=== PATIENT | female | born 1995 | race African-American/Black ===

== ENCOUNTER 2016-09-27 14:27 | Emergency (ER) | payer OTHER ==
--- NOTE | ~2016-09-27 | EKG ---
PATIENT: BENNIE SHAW UNIT #: [id number] Ventricular Rate: 84 BPM Atrial Rate: 84 BPM P-R Interval: 116 ms QRS Duration: 74 ms Q-T Interval: 350 ms QTC Calculation(Bezet): 413 ms P [place]: 65 degrees Calculated R [place]: 20 degrees Calculated T [place]: 27 degrees Diagnosis Line: Normal sinus rhythm Diagnosis Line: Normal ECG Diagnosis Line: No previous ECGs available Diagnosis Line: Confirmed by PRETTY ALVARADO MD ([id number]) on Diagnosis Line: 10/01/2016 1:25:31 PM INTERPRETING MD: JENNY BHAGAT
[~2016-09-27 14:27] MED LIST: BACITRACIN30 GM TOP; CYCLAFEM; IBUPROFEN PO; MUCINEX D1 TAB.SR1; NUPRIN200 M1 PO; ZITHROMAX
[2016-09-27 18:18] LABS: BASOPHIL% 0.5 % (0-2.5); EOSINOPHIL# 0.2 X10e3 (0-0.7); EOSINOPHIL% 4.6 % (0.0-7.0); HEMATOCRIT 40.9 % (35.0-45.0); HEMOGLOBIN 13.9 gm/dL (12.0-16.0); LYMPHOCYTE# 1.1 X10e3 (1.0-3.5); LYMPHOCYTE% 21.5 % (17.0-45.0); MEAN CELL VOLUME 84.7 FL (83-96); MEAN CORPUSCULAR HEMOGLOBIN 28.8 PG (28-34); MEAN PLATELET VOLUME 9.4 FL (6.5-11.5); MONOCYTE# 0.4 X10e3 (0-1.0); MONOCYTE% 7.5 % (3.0-12.0); NEUTROPHIL# 3.4 X10e3 (1.5-7.1); NEUTROPHIL% 65.9 % (40-75); PLATELET COUNT 179 X10e3 (140-420); RED BLOOD COUNT 4.83 X10e (3.90-5.30); RED CELL DISTRIBUTION WIDTH 13.5 % (11.0-15.5); WHITE BLOOD COUNT 5.1 X10e3 (4.0-10.5)
[2016-09-27 18:20] LABS: DIFF IND NO
[2016-09-28 07:28] LABS: ALKALINE PHOSPHATASE 32 U/L (32-92); ALT (SGPT) 10 U/L (10-40); AST (SGOT) 16 U/L (10-42); BILIRUBIN, DIRECT 0.1 mg/dL (0.0-0.2); BILIRUBIN,TOTAL <0.1 mg/dL (0.2-2.0); BLOOD UREA NITROGEN 6 mg/dL (9-23); CALCIUM SERUM 8.9 mg/dL (8.4-10.2); CARBON DIOXIDE 28 mmol/L (22-31); CHLORIDE 106 mmol/L (100-111); CREATININE SERUM 0.8 mg/dL (0.6-1.4); GLOM FILT RATE Estimated 122.3 mL/min (>60); GLUCOSE FASTING 100 mg/dL (70-110); POTASSIUM 3.7 mmol/L (3.5-5.1); PROTEIN TOTAL SERUM 7.4 g/dL (6.0-8.3); SODIUM 140 mmol/L (135-145)
[2016-09-28 10:17] LABS: POC - CKMB <1.0 ng/mL (0.0-7.9); POC - TROPONIN <0.05 ng/mL (<=0.05)
== END 2016-09-27 16:10 | disposition home or self-care (01) ==
LOC: SED 14:27
PROVIDERS: Emergency Medicine
DX: R55 Syncope and collapse (principal); F17.200 Nicotine dependence, unspecified, uncomplicated
CPT/HCPCS: 36415; 80048; 80076; 82553; 84484; 84703; 85025; 93005; 99284

== ENCOUNTER → 2016-10-02 | Outpatient (CLI) | payer OTHER ==
--- NOTE | ~2016-10-02 | US17 ---
[facility] A Service of [facility] & [facility] RADIOLOGY TEXT RESULTS PATIENT: BENNIE SHAW LOCATION: [facility] : [birth year] UNIT #: [id number] AGE: [address]: Den Vergara MD SEX: F ORDER DR: [id number] [facility] [address] [place], [place] [address] [id number] O MR#: [id number] Acc #: [id number] NAME: BENNIE SHAW : 1995 SEX: F STUDY DATE/TIME: 10/02/2016 12:58 UNIT: [facility] ROOM: STUDY DESCRIPTION: US Breast Bilateral Attending Physician: Den Vergara M.D. Referring Physician: Den Vergara M.D. Ordering Physician: Den Vergara M.D. Primary Care Physician: Mary Childs M.D. MEDICAL IMAGING REPORT This report is preliminary unless electronic signature is present EXAM Bilateral diagnostic breast ultrasound 10/02/2016 HISTORY Follow up previously biopsied 10 o'clock right breast nodule, compatible with fibroadenoma, per patient. Follow up of additional right and left breast densities, which on 03/18/2016 ultrasound were thought to potentially represent nodules, but on followup diagnostic breast ultrasound for potential excisional biopsy, were thought to represent benign but dense heterogeneous fibroglandular tissue. FINDINGS Targeted sonographic imaging was performed of each breast. In the 10 o'clock position of the right breast approximately 2 cm from the nipple, an oval hypoechoic solid, wider than tall macrolobulated lesion measuring up to 1.2 cm is seen, consistent with benign fibroadenoma, which has undergone previous ultrasound-guided core needle biopsy. In the 7 o'clock axis of the right breast, 2 o'clock axis of the left breast, and 6 o'clock axis of the left breast, heterogeneously dense fibroglandular tissue is seen without discrete or suspicious nodularity. No new suspicious cystic or solid nodules are identified within either breast. No microcalcifications or architectural distortion is seen. IMPRESSION BIRADS category 2. Benign findings in each breast. The 10 o'clock right breast nodule which has undergone previous biopsy, compatible with fibroadenoma, is unchanged. Other foci of heterogeneously dense fibroglandular tissue within each breast, as documented in the report, appear stable compared to 03/08/2016. On today's ultrasound, these do not have suspicious mass-like characteristics. Therefore, the patient is recommended to return for routine annual screening mammograms cycle at the [facility] A Service of [facility] RADIOLOGY TEXT RESULTS PATIENT: BENNIE SHAW LOCATION: [facility] : 95 UNIT #: [id number] AGE: [address]: Den Vergara MD SEX: F ORDER DR: age of 40. Any additional followup imaging can be obtained sooner if deemed appropriate based upon physical examination findings and clinical history. The findings and recommendations were discussed with the patient today in the Radiology Department. BIRADS: 2 Benign finding Dictated by... Cyndi Fleming M.D. THIS IS AN ELECTRONICALLY VERIFIED REPORT Cyndi Fleming M.D. at 10/04/2016 7:14 AM ANKITA/anca TD: 10/02/2016 13:47 JOB #: [id number] MEDICAL IMAGING REPORT Page 1 of 1 COPY
== END | disposition home or self-care (01) ==
LOC: CWCC 10-01 08:00
DX: N63 Unspecified lump in breast (principal)
CPT/HCPCS: 76641